=== PATIENT | male | born 1975 | race Caucasian/White ===

== ENCOUNTER 2018-04-06 12:31 | Emergency (ER) | payer SELFPAY, MEDICAID ==
[2018-04-06] MEDS: ASPIRIN 81 MG TAB PO (13:02)
[2018-04-06 13:13] LABS: ADD MAN DIFF? NO
[2018-04-06 13:15] LABS: WHITE BLOOD COUNT 11.9 10^3/ul (4.8-10.8)
[2018-04-06 13:15] LABS: BASOPHIL # 0.1 10^3/ul (0.0-0.1); BASOPHILS % 0.5 % (0.0-2.0); EOSINOPHILS # 0.4 10^3/ul (0.0-0.5); EOSINOPHILS % 3.3 % (0.0-7.0); HEMATOCRIT 45.7 % (42.0-52.0); HEMOGLOBIN 16.1 g/dl (14.0-18.0); LYMPHOCYTES # 3.8 10^3/ul (0.8-2.9); LYMPHOCYTES % 32.3 % (15.0-51.0); MEAN CORPUSCULAR HEMOGLOBIN 32.9 pg (29.0-33.0); MEAN CORPUSCULAR HGB CONC 35.2 g/dl (32.0-37.0); MEAN CORPUSCULAR VOLUME 93.5 fl (82.0-101.0); MEAN PLATELET VOLUME 9.3 fl (7.4-10.4); MONOCYTE # 0.8 10^3/ul (0.3-0.9); MONOCYTES % 7.1 % (0.0-11.0); NEUTROPHIL # 6.7 10^3/ul (1.6-7.5); NEUTROPHILS % 56.5 % (39.0-77.0); PLATELET COUNT 269 10^3/UL (140-415); RED BLOOD COUNT 4.89 10^6/ul (4.70-6.10); RED CELL DISTRIBUTION WIDTH 11.9 % (11.5-14.5)
[2018-04-06 13:32] LABS: ANION GAP 16 (8-16); BLOOD UREA NITROGEN 16 mg/dl (7-20); CALCIUM 9.3 mg/dl (8.4-10.2); CARBON DIOXIDE 25 mmol/L (21-31); CHLORIDE 103 mmol/L (97-110); CREATININE 0.86 mg/dl (0.61-1.24); GLUCOSE 201 mg/dl (70-220); POTASSIUM 3.7 mmol/L (3.5-5.1); SODIUM 140 mmol/L (135-144)
[2018-04-06 13:46] LABS: TROPONIN-I < 0.012 ng/ml (0.000-0.120)
[2018-04-06] MEDS: NITROGLYCERIN (SL) 0.4 MG TAB SL (14:13)
[2018-04-06] MEDS: morphine 4 MG/ML VIAL IV (14:32)
[2018-04-06] MEDS: KETOROLAC 30 MG INJ IV (14:32)
== END 2018-04-06 16:26 | disposition home or self-care (01) ==
LOC: E/R 12:31
DX: R07.89 Other chest pain (principal); I10 Essential (primary) hypertension; E11.9 Type 2 diabetes mellitus without complications; F17.210 Nicotine dependence, cigarettes, uncomplicated; I25.10 Atherosclerotic heart disease of native coronary artery without angina pectoris; Z79.82 Long term (current) use of aspirin; Z79.84 Long term (current) use of oral hypoglycemic drugs
CPT/HCPCS: 36415; 71045; 80048; 84484; 85025; 93005; 96374; 96375; 99285-25

== ENCOUNTER 2019-01-15 17:20 | Observation (INO) | payer MEDICAID ==
[2019-01-15] MEDS ORDERED: NITROGLYCERIN (SL) 0.4 MG TAB SL ×2 (18:30→20:00)
[2019-01-15 18:40] LABS: ADD MAN DIFF? NO
[2019-01-15 18:42] LABS: WHITE BLOOD COUNT 9.3 10^3/ul (4.8-10.8)
[2019-01-15 18:42] LABS: BASOPHIL # 0.1 10^3/ul (0.0-0.1); BASOPHILS % 0.5 % (0.0-2.0); EOSINOPHILS # 0.1 10^3/ul (0.0-0.5); EOSINOPHILS % 0.9 % (0.0-7.0); HEMATOCRIT 49.6 % (42.0-52.0); HEMOGLOBIN 17.9 g/dl (14.0-18.0); LYMPHOCYTES # 3.3 10^3/ul (0.8-2.9); LYMPHOCYTES % 35.6 % (15.0-51.0); MEAN CORPUSCULAR HEMOGLOBIN 32.8 pg (29.0-33.0); MEAN CORPUSCULAR HGB CONC 36.1 g/dl (32.0-37.0); MEAN PLATELET VOLUME 9.4 fl (7.4-10.4); MONOCYTE # 0.5 10^3/ul (0.3-0.9); MONOCYTES % 5.8 % (0.0-11.0); NEUTROPHIL # 5.3 10^3/ul (1.6-7.5); NEUTROPHILS % 56.8 % (39.0-77.0); PLATELET COUNT 290 10^3/UL (140-415); RED BLOOD COUNT 5.45 10^6/ul (4.70-6.10); RED CELL DISTRIBUTION WIDTH 11.5 % (11.5-14.5)
[2019-01-15] MEDS: morphine 4 MG/ML VIAL IV (18:42)
[2019-01-15] MEDS: ONDANSETRON 4 MG INJ IV (18:42)
[2019-01-15] MEDS: NITROGLYCERIN 2% 1 GM OINT PKT TD (18:43)
[2019-01-15] MEDS: ASPIRIN 81 MG TAB PO (18:43)
[2019-01-15 19:05] LABS: ANION GAP 15 (5-13); BLOOD UREA NITROGEN 11 mg/dl (7-20); CALCIUM 9.9 mg/dl (8.4-10.2); CARBON DIOXIDE 27 mmol/L (21-31); CHLORIDE 98 mmol/L (97-110); CREATININE 0.69 mg/dl (0.61-1.24); Estimated GFR > 60 mL/min (>60); GLUCOSE 189 mg/dl (70-220); POTASSIUM 3.8 mmol/L (3.5-5.1); SODIUM 140 mmol/L (135-144)
[2019-01-15 19:18] LABS: TROPONIN-I < 0.012 ng/ml (0.000-0.120)
[2019-01-15] MEDS ORDERED: morphine 2 MG INJ IV (20:00)
[2019-01-15] MEDS ORDERED: BISACODYL (EC) 5 MG TAB PO (20:00)
[2019-01-15] MEDS ORDERED: ACETAMINOPHEN 325 MG TAB PO (20:00)
[2019-01-15] MEDS ORDERED: NACL 0.9% 3 ML SYG IV (20:00)
[2019-01-15] MEDS ORDERED: ONDANSETRON 4 MG INJ IV ×2 (20:00)
[2019-01-15] MEDS ORDERED: DOCUSATE SODIUM 100 MG CAP PO (20:00)
[2019-01-15] MEDS ORDERED: hydrALAzine 20 MG INJ IV (22:30)
[2019-01-16 00:56] LABS: CREATINE KINASE 109 IU/L (23-200)
[2019-01-16 01:07] LABS: CK INDEX 0.3; TROPONIN-I < 0.012 ng/ml (0.000-0.120)
[2019-01-16 06:48] LABS: ADD MAN DIFF? NO
[2019-01-16 06:53] LABS: BASOPHILS % 0.4 % (0.0-2.0); EOSINOPHILS # 0.1 10^3/ul (0.0-0.5); EOSINOPHILS % 1.7 % (0.0-7.0); HEMATOCRIT 46.3 % (42.0-52.0); LYMPHOCYTES # 2.7 10^3/ul (0.8-2.9); LYMPHOCYTES % 33.4 % (15.0-51.0); MEAN CORPUSCULAR HEMOGLOBIN 32.1 pg (29.0-33.0); MEAN CORPUSCULAR HGB CONC 34.6 g/dl (32.0-37.0); MEAN CORPUSCULAR VOLUME 92.8 fl (82.0-101.0); MEAN PLATELET VOLUME 9.5 fl (7.4-10.4); MONOCYTE # 0.5 10^3/ul (0.3-0.9); MONOCYTES % 6.6 % (0.0-11.0); NEUTROPHIL # 4.6 10^3/ul (1.6-7.5); NEUTROPHILS % 57.5 % (39.0-77.0); PLATELET COUNT 263 10^3/UL (140-415); RED BLOOD COUNT 4.99 10^6/ul (4.70-6.10); RED CELL DISTRIBUTION WIDTH 11.7 % (11.5-14.5)
[2019-01-16 06:53] LABS: WHITE BLOOD COUNT 8.1 10^3/ul (4.8-10.8)
[2019-01-16 07:14] LABS: CREATINE KINASE 97 IU/L (23-200)
[2019-01-16 07:23] LABS: HEMOGLOBIN A1C 9.7 % (0-5.9)
[2019-01-16 07:26] LABS: CK INDEX 0.3; CK-MB 0.29 ng/ml (0.0-2.4); TROPONIN-I < 0.012 ng/ml (0.000-0.120)
[2019-01-16 07:32] LABS: ALANINE AMINOTRANSFERASE 22 IU/L (13-69); ALBUMIN 4.1 g/dl (3.3-4.9); ALBUMIN/GLOBULIN RATIO 1.57; ALKALINE PHOSPHATASE 82 IU/L (42-121); ANION GAP 12 (5-13); ASPARTATE AMINO TRANSFERASE 35 IU/L (15-46); BILIRUBIN,INDIRECT 0.6 mg/dl (0-1.1); BILIRUBIN,TOTAL 0.6 mg/dl (0.2-1.3); BLOOD UREA NITROGEN 14 mg/dl (7-20); CALCIUM 9.5 mg/dl (8.4-10.2); CARBON DIOXIDE 25 mmol/L (21-31); CHLORIDE 102 mmol/L (97-110); CHOL/HDL RATIO 5.8 RATIO; CHOLESTEROL 215 mg/dl (100-200); CREATININE 0.74 mg/dl (0.61-1.24); Estimated GFR > 60 mL/min (>60); GLUCOSE 182 mg/dl (70-220); HDL CHOLESTEROL 37 mg/dl (27-67); LDL CHOLESTEROL,CALCULATED 93 mg/dl; MAGNESIUM 1.9 mg/dl (1.7-2.5); POTASSIUM 4.1 mmol/L (3.5-5.1); SODIUM 139 mmol/L (135-144); TOTAL PROTEIN 6.7 g/dl (6.1-8.1); TRIGLYCERIDES 423 mg/dl (0-149)
[2019-01-16] MEDS: ESCITALOPRAM 10 MG TAB PO (09:03)
[2019-01-16] MEDS: AMLODIPINE 10 MG TAB PO (09:03)
[2019-01-16] MEDS: RANITIDINE 150 MG TAB PO ×2 (09:03→21:18)
[2019-01-16] MEDS: ASPIRIN (EC) 81 MG TAB PO (09:03)
[2019-01-16] MEDS: LISINOPRIL 20 MG TAB PO (09:04)
[2019-01-16] MEDS: HYDROCHLOROTHIAZIDE 25 MG TAB PO (09:04)
[2019-01-16] MEDS: FISH OIL 1,000 MG CAP PO ×2 (10:16→21:17)
[2019-01-16] MEDS: INSULIN ASPART [NOVOLOG] 3 ML PEN SC ×5 (12:29→21:00)
[2019-01-16] MEDS: ACETAMINOPHEN 325 MG TAB PO (17:22)
[2019-01-16] MEDS ORDERED: NON-FORMULARY/PATIENT OWN MED (Simvastatin* (Zocor*) 20 MG) PO (21:00)
[2019-01-16] MEDS ORDERED: ATORVASTATIN 10 MG TAB PO (21:00)
[2019-01-16] MEDS: ATORVASTATIN 40 MG TAB PO (21:17)
[2019-01-16] MEDS: INSULIN GLARGINE [LANTus] (100 UNITS/ML) SYG SC (21:21)
[2019-01-17] MEDS: HYDROCHLOROTHIAZIDE 25 MG TAB PO (08:06)
[2019-01-17] MEDS: RANITIDINE 150 MG TAB PO (08:06)
[2019-01-17] MEDS: AMLODIPINE 10 MG TAB PO (08:07)
[2019-01-17] MEDS: LISINOPRIL 20 MG TAB PO (08:07)
[2019-01-17] MEDS: FISH OIL 1,000 MG CAP PO (08:07)
[2019-01-17] MEDS: ESCITALOPRAM 10 MG TAB PO (08:07)
[2019-01-17] MEDS: ASPIRIN (EC) 81 MG TAB PO (08:07)
[2019-01-17] MEDS: INSULIN ASPART [NOVOLOG] 3 ML PEN SC ×2 (08:16→09:12)
[2019-01-17 08:46] LABS: ADD MAN DIFF? NO
[2019-01-17 08:50] LABS: BASOPHIL # 0.1 10^3/ul (0.0-0.1); BASOPHILS % 0.7 % (0.0-2.0); EOSINOPHILS # 0.1 10^3/ul (0.0-0.5); EOSINOPHILS % 1.1 % (0.0-7.0); HEMATOCRIT 49.4 % (42.0-52.0); HEMOGLOBIN 17.2 g/dl (14.0-18.0); LYMPHOCYTES # 2.8 10^3/ul (0.8-2.9); LYMPHOCYTES % 32.5 % (15.0-51.0); MEAN CORPUSCULAR HEMOGLOBIN 32.2 pg (29.0-33.0); MEAN CORPUSCULAR HGB CONC 34.8 g/dl (32.0-37.0); MEAN CORPUSCULAR VOLUME 92.5 fl (82.0-101.0); MEAN PLATELET VOLUME 9.8 fl (7.4-10.4); MONOCYTE # 0.6 10^3/ul (0.3-0.9); MONOCYTES % 6.4 % (0.0-11.0); NEUTROPHIL # 5.1 10^3/ul (1.6-7.5); NEUTROPHILS % 58.8 % (39.0-77.0); PLATELET COUNT 284 10^3/UL (140-415); RED BLOOD COUNT 5.34 10^6/ul (4.70-6.10); RED CELL DISTRIBUTION WIDTH 11.7 % (11.5-14.5)
[2019-01-17 08:50] LABS: WHITE BLOOD COUNT 8.7 10^3/ul (4.8-10.8)
[2019-01-17 09:06] LABS: ANION GAP 11 (5-13); BLOOD UREA NITROGEN 15 mg/dl (7-20); CALCIUM 9.5 mg/dl (8.4-10.2); CARBON DIOXIDE 26 mmol/L (21-31); CHLORIDE 102 mmol/L (97-110); CREATININE 0.78 mg/dl (0.61-1.24); Estimated GFR > 60 mL/min (>60); GLUCOSE 180 mg/dl (70-220); POTASSIUM 3.7 mmol/L (3.5-5.1); SODIUM 139 mmol/L (135-144)
[2019-01-17 09:11] LABS: PHOSPHORUS 4.2 mg/dl (2.5-4.9)
[2019-01-17 09:11] LABS: MAGNESIUM 1.9 mg/dl (1.7-2.5)
[2019-01-17 09:19] LABS: TROPONIN-I < 0.012 ng/ml (0.000-0.120)
== END 2019-01-17 11:09 | disposition home or self-care (01) ==
LOC: E/R 17:20 → TEL 19:45
DX: R07.89 Other chest pain (principal); I16.0 Hypertensive urgency; I10 Essential (primary) hypertension; E11.9 Type 2 diabetes mellitus without complications; E78.5 Hyperlipidemia, unspecified; Z72.0 Tobacco use; F39 Unspecified mood [affective] disorder; Z79.82 Long term (current) use of aspirin; Z79.84 Long term (current) use of oral hypoglycemic drugs; R51 Headache
CPT/HCPCS: 36415; 70450; 71045; 80048; 80053; 80061; 82550; 82553; 82962; 83036; 83735; 84100; 84443; 84484; 85025; 93005; 93306; 96374; 96375; 99285-25; G0378

== ENCOUNTER 2019-02-22 06:02 | Emergency (ER) | payer MEDICAID ==
[2019-02-22] MEDS: LORAZEPAM 2 MG INJ IV (06:51)
[2019-02-22 06:55] LABS: ADD MAN DIFF? NO
[2019-02-22 06:57] LABS: BASOPHIL # 0.1 10^3/ul (0.0-0.1); BASOPHILS % 0.8 % (0.0-2.0); EOSINOPHILS # 0.2 10^3/ul (0.0-0.5); EOSINOPHILS % 1.8 % (0.0-7.0); HEMOGLOBIN 18.9 g/dl (14.0-18.0); LYMPHOCYTES % 32.5 % (15.0-51.0); MEAN CORPUSCULAR HEMOGLOBIN 33.3 pg (29.0-33.0); MEAN CORPUSCULAR HGB CONC 35.7 g/dl (32.0-37.0); MEAN CORPUSCULAR VOLUME 93.3 fl (82.0-101.0); MEAN PLATELET VOLUME 9.2 fl (7.4-10.4); MONOCYTE # 0.7 10^3/ul (0.3-0.9); MONOCYTES % 7.5 % (0.0-11.0); NEUTROPHIL # 5.3 10^3/ul (1.6-7.5); NEUTROPHILS % 57.1 % (39.0-77.0); PLATELET COUNT 296 10^3/UL (140-415); RED BLOOD COUNT 5.68 10^6/ul (4.70-6.10); RED CELL DISTRIBUTION WIDTH 13.2 % (11.5-14.5)
[2019-02-22 06:57] LABS: WHITE BLOOD COUNT 9.2 10^3/ul (4.8-10.8)
[2019-02-22 07:03] LABS: ANION GAP 15 (5-13); BLOOD UREA NITROGEN 7 mg/dl (7-20); CALCIUM 9.3 mg/dl (8.4-10.2); CARBON DIOXIDE 23 mmol/L (21-31); CHLORIDE 103 mmol/L (97-110); CREATININE 0.79 mg/dl (0.61-1.24); Estimated GFR > 60 mL/min (>60); GLUCOSE 163 mg/dl (70-220); SODIUM 141 mmol/L (135-144)
[2019-02-22 07:05] LABS: POTASSIUM 4.1 mmol/L (3.5-5.1)
[2019-02-22] MEDS: LISINOPRIL 20 MG TAB PO (07:06)
[2019-02-22] MEDS: AMLODIPINE 10 MG TAB PO (07:06)
[2019-02-22] MEDS: HYDROCHLOROTHIAZIDE 25 MG TAB PO (07:07)
[2019-02-22] MEDS: ACETAMINOPHEN 500 MG TAB PO (08:07)
[2019-02-22 11:16] LABS: TROPONIN-I < 0.012 ng/ml (0.000-0.120)
[2019-02-22] MEDS: KETOROLAC 15 MG INJ IV (11:50)
== END 2019-02-22 12:55 | disposition home or self-care (01) ==
LOC: E/R 06:02
DX: R20.0 Anesthesia of skin (principal); I10 Essential (primary) hypertension; E11.9 Type 2 diabetes mellitus without complications; F41.9 Anxiety disorder, unspecified; Z79.82 Long term (current) use of aspirin; Z79.84 Long term (current) use of oral hypoglycemic drugs; Z87.891 Personal history of nicotine dependence
CPT/HCPCS: 36415; 80048; 82962; 84484; 85025; 93005; 96374; 96375; 99285-25

== ENCOUNTER 2019-06-19 14:15 | Emergency (ER) | payer SELFPAY, MEDICAID ==
[2019-06-19] MEDS: NICARDipine HCL 30 MG CAPSULE PO ×2 (15:11→15:43)
[2019-06-19] MEDS: KETOROLAC 30 MG INJ IM (15:12)
== END 2019-06-19 16:15 | disposition home or self-care (01) ==
LOC: E/R 14:15
DX: I10 Essential (primary) hypertension (principal); E11.9 Type 2 diabetes mellitus without complications; F17.210 Nicotine dependence, cigarettes, uncomplicated; Z79.84 Long term (current) use of oral hypoglycemic drugs; Z79.82 Long term (current) use of aspirin
CPT/HCPCS: 70450; 96372; 99285-25